=== PATIENT | female | born 1965 | race Caucasian/White ===

== ENCOUNTER 2024-07-18 10:30 | Outpatient (CLI) | payer OTHER, SELFPAY ==
[2024-07-18 11:06] LABS: Basophils Percent Auto 0.4 % (0.2-1.2); Eosinophils Percent Auto 0.5 % (0-4.4); Hematocrit 45.1 % (37.0-47.0); Hemoglobin 15.1 g/dL (12.0-15.0); Immature Granulocyte Absolute 0.02 K/mm3 (0.00-0.031); Immature Granulocyte Percent A 0.3 % (0-0.5); Lymphocytes Percent Auto 25.5 % (18.3-44.2); Mean Corpuscular HGB Conc 33.5 g/dl (32-36); Mean Corpuscular Hemoglobin 32.2 pg (26-34); Mean Corpuscular Volume 96.2 fl (80-100); Mean Platelet Volume 9.5 fl (7.4-10.4); Monocytes Absolute Auto 0.5 K/mm3 (0.1-0.6); Monocytes Percent Auto 6.3 % (2.6-8.5); Platelet Count Result 288 k/mm3 (150-375); Red Blood Count 4.69 M/mm3 (4.2-5.4); Red Cell Distribution Width 12.5 % (11.5-14.5); White Blood Count 7.5 K/mm3 (4.5-10.0)
[2024-07-18 11:17] LABS: Albumin Level 4.6 g/dL (3.5-5.1); Anion Gap 12 mmol/L (4-12); Blood Urea Nitrogen 12 mg/dL (7-17); Calcium 9.4 mg/dL (8.4-10.2); Carbon Dioxide 23 mmol/L (22-30); Chloride 104 mmol/L (98-107); Estimated Glomerular Filt Rate > 60; Glucose 101 mg/dL (65-110); Sodium 139 mmol/L (137-145)
[2024-07-18 11:24] LABS: Prealbumin 30.5 mg/dL (17.6-36.0)
[2024-07-18 11:26] LABS: Iron 120 ug/dL (37-170)
[2024-07-18 11:48] LABS: Hemoglobin A1C 5.7 % (<5.7)
[2024-07-20 14:13] LABS: Vitamin B1 <6 nmol/L (8-30)
== END 2024-07-18 10:31 | disposition home or self-care (01) ==
LOC: ANHLAB 10:36
PROVIDERS: PCP Family Medicine; Visit Provider Surgery Plastic and Reconstructive Surgery
DX: R63.4 Abnormal weight loss (principal)
CPT/HCPCS: 36415; 80048; 82040; 83036; 83540; 84134; 84425; 85025

== ENCOUNTER 2024-08-07 15:13 | Outpatient (CLI) | payer OTHER, SELFPAY ==
--- NOTE | 2024-08-07 15:32 | ECG_ITS ---
Test Date: 2024-08-07 15:39:30 Measurements Intervals Edward Rate: 100 P: 61 ND: 163 QRS: 56 QRSD: 95 T: 38 QT: 324 QTc: 418 Interpretive Statements SINUS TACHYCARDIA POSSIBLE LEFT ATRIAL ENLARGEMENT MINIMAL Q WAVES- ANTEROLAT/INF LEADS BASELINE ARTIFACT- I, II, III, AVR, AVL, AVF, V3 BORDERLINE ECG No previous ECG available for comparison Electronically Signed On 08-07-2024 16:42:17 CDT by Jose Alvarado D.O.
== END 2024-08-07 15:14 | disposition home or self-care (01) ==
LOC: ANHCARD 15:16
PROVIDERS: PCP Family Medicine; Visit Provider Surgery Plastic and Reconstructive Surgery
DX: Z01.818 Encounter for other preprocedural examination (principal); I10 Essential (primary) hypertension
CPT/HCPCS: 93005

== ENCOUNTER 2024-08-08 02:45 | Day surgery (SDC) | payer OTHER, SELFPAY ==
[2024-07-31 09:41] VITALS: BMI 33.0
--- NOTE | 2024-07-31 09:55 | PC.NURSE ---
Report to the Outpatient Waiting Room, entrance under the green pavilion located off [facility], at time _0630_ on date _[id number]_. Planned Procedure Time: _0830_.? Time changes happen often and if your time is changed the preop area will call you the afternoon before. - You and your visitor will be asked to self-screen and do not enter if you have any COVID symptoms. Please call surgeon if you need to reschedule. - A mask is optional within the hospital at this time. Patients may have clear liquids (water, carbonated beverages, clear teas, apple juice) until 3 hours prior to surgery with a maximum of 20 ounces. - No food from midnight until time of surgery and no smoking Take only the following medications with a SIP of water on the morning of surgery: __None DO NOT STOP ANY OF YOUR OTHER PRESCRIPTION MEDICATIONS PRIOR TO SURGERY EXCEPT THE FOLLOWING Medications to discontinue per physician __Vitamin B-1 Date to take last mzkx___[id number] Please no make-up, nail bruneian, hairspray, perfume, deodorant, or body powder the day of surgery.? No jewelry (including any body piercings) or valuables the day of surgery, leave them at home.? Please take a shower or bath the night before, or the morning of, surgery with an antibacterial soap.? Wear comfortable, loose fitting clothing.? - Jewelry must be removed prior to entering the operating room.? Rings and piercings that are not removed may be cut off. - The hospital will not accept responsibility for valuables.? - Please leave all valuables, including medications, at home the day of surgery. If you are going home after surgery, a licensed national van truck driver must drive you home.? - NO public transportation without another adult if you receive anesthesia. - We recommend that an adult stay with you for 24 hours following discharge. - We also recommend that you do not drive, make important decision, drink alcoholic beverages, or take any drugs that were not prescribed by your health care provider for at least 24 hours after your discharge time. Follow any additional instructions given to you from your surgeon. Telephone instructions given to __Donna___and asked if any additional questions and then verbalized understanding. Patient advised to call surgeon office or pre surgery nurse liaison [phone] if any additional questions.
[2024-08-08] VITALS (14 sets, daily range): BP systolic 154–190; BP diastolic 82–106; PULSE 70–107; RESP 14–20; TEMP 36.3–36.6; O2SAT 94–100; BMI 32.8
--- NOTE | 2024-08-08 06:53 | WPDHPUPDATE1 ---
History and Physical Update Update Date/Time: 08/08/24 06:53 History and Physical has been reviewed, including an updated exam of the patient. There are NO changes in the patient's condition. Risks, benefits, and alternatives have been discussed and questions answered. Patient agrees to proceed with procedure.
[2024-08-08 07:06] LABS: Urine Cotinine NEGATIVE
--- NOTE | 2024-08-08 07:21 | P.PNAN_ITS ---
Anes - Initial Pre Proc Eval Procedure: Operation Date: 08/08/24 08:30 Proposed Procedures p Bilateral Breast Mastopexy, - David Lackey MD s Bilateral Brachioplasty - David Lackey MD Date/Time: 08/08/24 07:21 Surgeon: David Lackey MD Pre Op Diagnosis: skin laxity, breast ptosis Patient Data Age: 59 Gender: F Height: 1.65 m Weight: 90 kg Allergies Allergy/AdvReac Type Severity Reaction Status Date / Time No Known Allergies Allergy Verified 08/08/24 07:09 Home Medications Medication Instructions Recorded Confirmed Type acetaminophen-calcium carbonat 500 100 tablet PO Q6H PRN Pain 07/31/24 07/31/24 History mg-250 mg tablet pseudoephedrine-guaifenesin 30 1 cap PO Q6-8H PRN Allergy Symptoms 07/31/24 07/31/24 History mg-200 mg capsule thiamine HCl (vitamin B1) 250 mg 250 mg PO DAILY 07/31/24 08/08/24 History tablet (Vitamin B-1) Laboratory Tests 08/08/24 06:43 Cotinine Negative Patient hx anesthesia problems: none Family hx anesthesia problems: none Results Review: All pre-operative results and documents have been reviewed as part of the pre- operative evaluation. FOR[facility]LY [facility] Past Medical History Medical History (Updated 08/08/24 @ 07:28 by Hernán Pruitt DO) Anemia Surgical History Surgical History (Updated 08/08/24 @ 07:28 by Hernán Pruitt DO) History of nephrectomy Social History Social History Smoking status: Never smoker Alcohol intake: former Living arrangements: with family Spiritual care concerns: No Anes - Eval Final PreProcedure Day of Procedure 08/08/24 07:21 Patient weight: obese Heart: regular rate and rhythm Lungs: clear to auscultation Airway: Mallampati scale class II Neurological: alert and oriented Last oral intake: >/= 8 hours ASA classification: II Emergent: no Anesthetic plan: proceed Anesthesia type and monitoring: general ETT and standard monitoring Results Review: All pre-operative results and documents have been reviewed as part of the pre- operative evaluation. Informed Consent: The patient's anesthetic plan and its attendant risks and benefits were discussed with the patient/family/POA. Questions were solicited and answers provided to the satisfaction of the patient/family/POA.
[2024-08-08] MEDS: LACTATED RINGERS 1,000 ML 30 ML IV CONT ×3 (07:30→16:17)
--- NOTE | 2024-08-08 08:03 | W.PM.PROC2 ---
Procedure Note - Detailed Date of Procedure 08/08/24 Pre-op Diagnosis skin laxity, breast ptosis Post-op Diagnosis Same Procedure Performed 1. Bilateral Mastopexy 2. Bilateral Brachioplasty Surgeon David Lackey MD Anesthesia General Findings Inverted T Superior medical pedicle Tissue removed: 497.2 grams Lipoaspirate: Breast: 750cc Arms: 2,000 cc Description of Procedure She is here today for the above. Previously and again today the risks, benefits, alternatives were discussed in extensive detail. I wanted her to be very realistic about the risks involved as well as expectations. We discussed aftercare and what to monitor for. Made sure answered all of her questions to her satisfaction today and consent was obtained. Marked in the preoperative holding area with their verification. The patient was taken to the operating room placed supine on the operating table. Anesthesia was provided by anesthesiology. A surgical time-out was taken. She was prepped and draped in a standard sterile fashion. Breast Eleven blade was utilized to make a stab incision and infiltrated with low volume tumescent solution. The breast was tailor tacked into place. I tailor tacked the breast into position. Placed her in a sitting position. Verified the nipple-areolar location based on preoperative planning as well as intraoperative observations and measurements in full agreement. She was placed supine. I de-epithelialized the pedicle. I then de-epithelialized the inferior breast tissue to create an autoaugmentation flap based on intercostal cement finisher apprentice. I elevated medial and lateral tissue flaps as well for planned closure. The autoaugmentation flap was sutured to the chest wall with 2-0 PDS. Once adequate time for hemostasis suction lipectomy was with a 4 mm Carol cannula laterally for symmetry and contour. This was completed based on preoperative planning, intraoperative observation, and rolling pinch test which was in full agreement. I closed along the IMF with 2-0 Stratafix. Along the vertical with 2-0 PDS. I closed around the Chuy with 3-0 strata fix. 3-0 Monocryl along the vertical. 3-0 Stratafix along the IMF. I finally closed everything with running subcuticular 4-0 Monocryl and tissue glue. Arms Stab incisions were made and I tumesced with a tumescent solution. Once adequate time for hemostasis suction lipectomy was with a 4 mm Carol cannula. This was completed based on preoperative planning, intraoperative observation, and rolling pinch test which was in full agreement. I completely de-fatted the planned resection area and a strip avulsion technique was completed. Starting proximal to distal a 10 blade was used to excise the intervening skin and this was tacked as we proceed to ensure good closure. This was closed using a 2-0 Quill, 3-0 strata fix, running subcuticular 4-0 Monocryl, and tissue glue. Dressings were placed. Tolerated the procedure well. Taken to the PACU without difficulty. All instrument sponge counts were correct at the end of the case. Estimated Blood Loss 100 Drains No Packing No Pathology None sent Complications No immediate complications Condition Stable Disposition PACU
[2024-08-08] MEDS: SCOPOLAMINE 1 MG PATCH 1 PATCH TRANSDERM (08:09)
[2024-08-08] MEDS: LACTATED RINGERS IRRIG 1,000 ML, LIDOCAINE HCL 1% LOCAL INJ 50 ML, EPINEPHrine HCL INJ ... INFILTRATE (08:57)
[2024-08-08] MEDS: ceFAZolin 2 GM/D5W 50 ML 2 GM/50 ML BAG IVPB (08:57)
[2024-08-08] MEDS: TRANEXAMIC ACID 1,000MG/ISO100 1,000 MG/100 ML BAG 200 MG IVPB (08:57)
--- NOTE | 2024-08-08 12:24 | SUR.OPER ---
Ephedrine [address] Davis
[2024-08-08] MEDS: ceFAZolin SODIUM 1 GM VIAL 2 GM IV PUSH (13:00)
[2024-08-08] MEDS: hydrALAZINE HCL 20 MG/ML VIAL 5 MG IV PUSH ×2 (15:09→15:31)
[2024-08-08] MEDS: fentaNYL CITRATE INJ (*CRX) 100 MCG/2 ML VIAL 25 MCG IV PUSH ×8 (15:41→16:36)
[2024-08-08] MEDS: ONDANSETRON INJ 4 MG/2 ML VIAL IV PUSH (16:21)
[2024-08-08] MEDS: oxyCODONE HCL (*CRX) 5 MG TAB IR PO (17:08)
== END 2024-08-08 18:07 | disposition home or self-care (01) ==
PROVIDERS: PCP Family Medicine; Visit Provider Surgery Plastic and Reconstructive Surgery
PROC: (CPT 19316; principal; 2024-08-08 08:30)
PROC: (CPT 15836; 2024-08-08 08:30)
DX: Z41.1 Encounter for cosmetic surgery (principal); L57.4 Cutis laxa senilis; N64.81 Ptosis of breast; D64.9 Anemia, unspecified; E66.9 Obesity, unspecified; Z68.32 Body mass index [BMI] 32.0-32.9, adult; Z98.890 Other specified postprocedural states; Z98.1 Arthrodesis status; Z90.5 Acquired absence of kidney
CPT/HCPCS: 19316; 19325; 15878; 15836; 80307; A9270; J0171; J0360; J0690; J1100; J1171; J2003; J2250; J2405; J2704; J3010; J7120